=== PATIENT | male | born 2000 | race African-American/Black ===

== ENCOUNTER 2023-02-21 18:34 | Emergency (ER) | payer OTHER, BC, SELFPAY ==
--- NOTE | ~2023-02-21 | CT_ITS ---
EXAMINATION: CT lumbar spine wo con DATE: 02/21/2023 20:05 INDICATION: Midline lumbar tenderness . TECHNIQUE: Computed tomography (CT) of the lumbar spine was performed without intravenous contrast. A utomated exposure control and iterative reconstruction technique were employed. The dose-length produ ct was 693.83 mGy-cm. COMPARISON: None. FINDINGS: Incidental note of mild and moderate degenerative disc changes in the lower thoracic spine. Multilevel mild anterior wedge deformity in the lower thoracic spine, likely physiologic. 5 nonrib-b earing lumbar-type vertebral bodies. Pedicles intact. Normal vertebral body alignment. Vertebral body heights preserved. Multilevel disc space narrowing, moderate at L5-S1, mild at the remaining lumbar levels. Multilevel facet arthropathy, mild at L4-5 and moderate at L5-S1. IMPRESSION: No acute fracture or traumatic malalignment in the lumbar spine. Reviewed, dictated and finalized at location K.
[2023-02-21 18:48] VITALS: BP 122/66; PULSE 103; RESP 16; TEMP 36.6; O2SAT 100
[2023-02-21] MEDS: IBUPROFEN 400 MG TABLET 800 MG PO (19:56)
[2023-02-21] MEDS: methocarbamoL 750 MG TABLET 1500 MG PO (19:56)
[2023-02-21] MEDS: ACETAMINOPHEN 500 MG TABLET 1000 MG PO (19:56)
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
== END 2023-02-21 21:49 | disposition home or self-care (01) ==
PROVIDERS: Emergency Provider Emergency Medicine
DX: S39.012A Strain of muscle, fascia and tendon of lower back, initial encounter (principal); V49.40XA Driver injured in collision with unspecified motor vehicles in traffic accident, initial encounter
CPT/HCPCS: 72131; 99284; A9270